=== PATIENT | male | born 1955 | race Caucasian/White ===

== ENCOUNTER 2020-02-29 19:45 | Emergency (ER) | payer OTHER, SELFPAY ==
[2020-02-29 21:44] VITALS: BP 184/93; PULSE 67; RESP 20; TEMP 37.2; O2SAT 98; BMI 36.1
[2020-02-29 22:20] LABS: MANUAL DIFF FLAG NO
[2020-02-29 22:24] LABS: Basophils Absolute Auto 0.1 X10*3/uL (0.0-0.2); Basophils Percent Auto 0.4 % (0-2); Eosinophils Absolute Auto 0.1 X10*3/uL (0.0-0.4); Hematocrit 46.2 % (42-52); Hemoglobin 15.6 g/dl (14.0-18.0); Imm Gran Abs Auto 0.03 X10*3/uL (0.00-0.03); Imm Gran Pct Auto 0.3 % (0.0-0.4); Lymphocytes Absolute Auto 3.5 X10*3/uL (1.2-4.9); Lymphocytes Percent Auto 29.1 % (20-40); Mean Corpuscular HGB Conc 33.8 g/dl (31.0-36.0); Mean Corpuscular Hemoglobin 30.4 pg (27.0-33.0); Mean Corpuscular Volume 90.1 fL (80-98); Monocytes Absolute Auto 0.9 X10*3/uL (0.1-1.2); Monocytes Percent Auto 7.5 % (2-11); Neutrophils Absolute Auto 7.3 X10*3/uL (2.0-8.3); Neutrophils Percent Auto 61.7 % (45-73); Platelet Count 232 X10*3/uL (160-400); Red Blood Count 5.13 X10*6/uL (4.60-5.80); Red Cell Distribution Width 12.4 % (11.0-16.0); White Blood Count 11.9 X10*3/uL (4.8-10.8)
[2020-02-29 22:54] LABS: Anion Gap 15 (12-20); Blood Urea Nitrogen 18 mg/dL (9-16); Calcium 9.8 mg/dL (8.4-10.2); Carbon Dioxide 28 mmol/L (22-29); Chloride 97 mmol/L (96-108); Creatinine Clr Calc Pharmacy 72.6; Estimated Glomerular Filt Rate 48; Glucose Random 359 mg/dL (60-115); Potassium 4.9 mmol/l (3.3-5.1); Sodium 135 mmol/L (135-145)
--- NOTE | 2020-02-29 23:28 | XR_ITS ---
EXAMINATION: XR CHEST CLINICAL INFORMATION: Weakness COMPARISON: CT 10/21/2018. Radiograph 11/23/2016 TECHNIQUE: Frontal view of the chest was obtained. FINDINGS: The lungs are well expanded. Calcifications are again noted diffusely, consistent with the appearance on previous CT and history of asbestos exposure. No consolidation. No edema or effusion. No pneumothorax. The cardiomediastinal silhouette is within normal limits. Mild degenerative changes of the spine. XR/XR chest 1V IMPRESSION: No acute pulmonary finding. Pleural calcifications again noted.
--- NOTE | 2020-02-29 23:34 | ED.GENADULT ---
HPI - General Adult General Chief complaint: Recheck/Abnormal Lab/Rx Stated complaint: ACHEY Time Seen by Provider: 02/29/20 23:12 History of Present Illness HPI narrative: Patient is a 64-year-old male with a long history of diabetes. Presents today with generalized malaise. Patient noted to have an elevated sugar. He took his normal insulin. Patient drank some apple juice,, subsequently came to the emergency department. There has been no other changes in medication. Patient complaining of generally feeling not well and may be having a flu like symptoms. He denies any coughing any upper respiratory symptoms denies any pain on urination. No earache. No sore throat. Patient from home. Did not feel just right. Denies any chest pain any diaphoresis. Denies any bloody stool. Related Data Home Medications Medication Instructions Recorded Confirmed insulin glargine [Lantus U-100 66 unit SUBCUT QPM 02/29/20 02/29/20 Insulin] Allergies Allergy/AdvReac Type Severity Reaction Status Date / Time codeine [CODEINE] Allergy Severe ANAPHYLAXIS Unverified 01/21/20 19:18 Review of Systems Review of Systems: Constitutional: No Weight loss, No Fever, No Chills, No Night Sweats, positive fatigue ENT/Mouth: No Hearing loss, No Ear Pain, No Nasal Congestion, No Sinus Pain, No Hoarseness, No sore throat, No Rhinorrhea, No Swallowing Difficulty Eyes: No Eye Pain, No Swelling, No Redness, No Foreign Body, No Discharge, No Vision Changes Cardiovascular: No Chest Pain, No SOB, No Dyspnea on Exertion, No Orthopnea, No Edema, No Palpitations Respiratory: No Cough, No Sputum, No Wheezing, No Smoke Exposure, No Dyspnea Gastrointestinal: No abdominal pain no nausea no vomiting no diarrhea Genitourinary: no irregular bleeding, No Dysuria, No Urinary Frequency, No Hematuria, No Urinary Incontinence, No Urgency, No Flank Pain, No Urinary Flow Changes, No Hesitancy Musculoskeletal: No joint pain, No Myalgias, No Joint Swelling Skin: No Skin Lesions, No rash Neuro: No Weakness, No Numbness, No Paresthesias, No Loss of Consciousness, No Dizziness, No Headache Psych: No Anxiety/Panic, No Depression, No SI/HI/AH/VH, No Social Issues, Heme/Lymph: No Bruising, No Bleeding,No Lymphadenopathy Endocrine: No Polyuria, No Polydipsia, No Temperature Intolerance [facility] Past Medical History Source: old records reviewed Medical History Depression Diabetes High cholesterol HTN (hypertension) TBI (traumatic brain injury) Social History Social History Advance Directives: No Advance Directives Information Provided: Yes Physical Exam Vital Signs: Vital Signs: Vital Signs Temp Pulse Resp BP Pulse Ox 03/01/20 02:00 69 18 156/85 H 97 03/01/20 00:42 97.9 F 67 16 141/89 H 03/01/20 00:35 96 03/01/20 00:04 86 15 106/65 98 03/01/20 00:00 80 16 132/81 02/29/20 21:44 98.9 F 67 20 184/93 H 98 Body Mass Index 36.1 Appearance: Alert. Oriented X3. No acute distress. Eyes: Pupils equal, round and reactive to light. ENT: Pharynx normal. Neck: Normal inspection. Neck supple. No lymph nodes noted. No crepitus CVS: Normal heart rate and rhythm. Pulses normal. Normal S1 and S2 Respiratory: No respiratory distress. Breath sounds normal. No Wheezing. No rales Abdomen: Soft and nontender. No rigidity. No distention. good BS x4 Skin: Skin warm and dry. Normal skin color. Normal skin turgor. Extremities: No lower extremity edema. Neurovascular intact to all extremities. No Lacerations. No Rash Neuro: Oriented X 3. No motor deficit. No sensory deficit. Moving all extermities. No slurred speech Medical Decision Making MDM Narrative Medical decision making narrative: Patient's urine showed no signs of infection. Chest x-ray showed no evidence of pneumonia. Well-appearing no acute distress. Electrolytes showed a creatinine 1.46 which is new. Will ask patient to drink more fluids. Closely follow up with primary physician. Will discharge home. Patient's sugar monitor in the emergency department down to the 200 range Lab Data Result diagrams: 02/29/20 22:14 02/29/20 22:14 Labs: Lab Results 02/29/20 02/29/20 02/29/20 Range/Units 22:14 22:14 22:14 WBC 11.9 H (4.8-10.8) X10*3/uL RBC 5.13 (4.60-5.80) X10*6/uL Hgb 15.6 (14.0-18.0) g/dl Hct 46.2 (42-52) % MCV 90.1 (80-98) fL MCH 30.4 (27.0-33.0) pg MCHC 33.8 (31.0-36.0) g/dl RDW 12.4 (11.0-16.0) % Plt Count 232 (160-400) X10*3/uL MPV 9.0 L (9.4-12.4) fL Immature Gran % (Auto) 0.3 (0.0-0.4) % Neut % (Auto) 61.7 (45-73) % Lymph % (Auto) 29.1 (20-40) % Terrell % (Auto) 7.5 (2-11) % Eos % (Auto) 1.0 (0-4) % Baso % (Auto) 0.4 (0-2) % Lymph # (Auto) 3.5 (1.2-4.9) X10*3/uL Terrell # (Auto) 0.9 (0.1-1.2) X10*3/uL Eos # (Auto) 0.1 (0.0-0.4) X10*3/uL Baso # (Auto) 0.1 (0.0-0.2) X10*3/uL Abs Immat Gran (auto) 0.03 (0.00-0.03) X10*3/uL Absolute Neuts (auto) 7.3 (2.0-8.3) X10*3/uL Absolute Nucleated RBC 0.000 (0.0-0.012) X10*3/uL Nucleated RBC % (auto) 0.0 (0.0-0.2) /100WBC Hold Purple Top SEE NOTE Hold Blue Top SEE NOTE Sodium (135-145) mmol/L Potassium (3.3-5.1) mmol/l Chloride (96-108) mmol/L Carbon Dioxide (22-29) mmol/L Anion Gap (12-20) BUN (9-16) mg/dL Creatinine (0.5-1.4) mg/dL Estim Creat Clear Calc Estimated GFR POC Glucose (60-115) mg/dL Random Glucose (60-115) mg/dL Calcium (8.4-10.2) mg/dL Urine Color Urine Appearance Urine pH (5.0-8.0) Ur Specific Macon (1.005-1.025) Urine Protein (NEG-TRACE) MG/DL Urine Glucose (UA) (NEG) MG/DL Urine Ketones (NEG) MG/DL Urine Blood (NEG) Urine Nitrite (NEG) Ur Leukocyte Esterase (NEG) Urine RBC (0) /HPF Urine WBC (0-4) /HPF Ur Squamous Epith Cells /LPF Urine Bacteria /LPF Hyaline Casts /LPF Urine Mucus /LPF 02/29/20 02/29/20 03/01/20 Range/Units 22:14 23:46 00:45 WBC (4.8-10.8) X10*3/uL RBC (4.60-5.80) X10*6/uL Hgb (14.0-18.0) g/dl Hct (42-52) % MCV (80-98) fL MCH (27.0-33.0) pg MCHC (31.0-36.0) g/dl RDW (11.0-16.0) % Plt Count (160-400) X10*3/uL MPV (9.4-12.4) fL Immature Gran % (Auto) (0.0-0.4) % Neut % (Auto) (45-73) % Lymph % (Auto) (20-40) % Terrell % (Auto) (2-11) % Eos % (Auto) (0-4) % Baso % (Auto) (0-2) % Lymph # (Auto) (1.2-4.9) X10*3/uL Terrell # (Auto) (0.1-1.2) X10*3/uL Eos # (Auto) (0.0-0.4) X10*3/uL Baso # (Auto) (0.0-0.2) X10*3/uL Abs Immat Gran (auto) (0.00-0.03) X10*3/uL Absolute Neuts (auto) (2.0-8.3) X10*3/uL Absolute Nucleated RBC (0.0-0.012) X10*3/uL Nucleated RBC % (auto) (0.0-0.2) /100WBC Hold Purple Top Hold Blue Top Sodium 135 (135-145) mmol/L Potassium 4.9 (3.3-5.1) mmol/l Chloride 97 (96-108) mmol/L Carbon Dioxide 28 (22-29) mmol/L Anion Gap 15 (12-20) BUN 18 H (9-16) mg/dL Creatinine 1.46 H (0.5-1.4) mg/dL Estim Creat Clear Calc 72.6 Estimated GFR 48 POC Glucose 305 H 270 H (60-115) mg/dL Random Glucose 359 H* (60-115) mg/dL Calcium 9.8 (8.4-10.2) mg/dL Urine Color Urine Appearance Urine pH (5.0-8.0) Ur Specific Macon (1.005-1.025) Urine Protein (NEG-TRACE) MG/DL Urine Glucose (UA) (NEG) MG/DL Urine Ketones (NEG) MG/DL Urine Blood (NEG) Urine Nitrite (NEG) Ur Leukocyte Esterase (NEG) Urine RBC (0) /HPF Urine WBC (0-4) /HPF Ur Squamous Epith Cells /LPF Urine Bacteria /LPF Hyaline Casts /LPF Urine Mucus /LPF 03/01/20 03/01/20 03/01/20 Range/Units 01:42 02:46 03:12 WBC (4.8-10.8) X10*3/uL RBC (4.60-5.80) X10*6/uL Hgb (14.0-18.0) g/dl Hct (42-52) % MCV (80-98) fL MCH (27.0-33.0) pg MCHC (31.0-36.0) g/dl RDW (11.0-16.0) % Plt Count (160-400) X10*3/uL MPV (9.4-12.4) fL Immature Gran % (Auto) (0.0-0.4) % Neut % (Auto) (45-73) % Lymph % (Auto) (20-40) % Terrell % (Auto) (2-11) % Eos % (Auto) (0-4) % Baso % (Auto) (0-2) % Lymph # (Auto) (1.2-4.9) X10*3/uL Terrell # (Auto) (0.1-1.2) X10*3/uL Eos # (Auto) (0.0-0.4) X10*3/uL Baso # (Auto) (0.0-0.2) X10*3/uL Abs Immat Gran (auto) (0.00-0.03) X10*3/uL Absolute Neuts (auto) (2.0-8.3) X10*3/uL Absolute Nucleated RBC (0.0-0.012) X10*3/uL Nucleated RBC % (auto) (0.0-0.2) /100WBC Hold Purple Top Hold Blue Top Sodium (135-145) mmol/L Potassium (3.3-5.1) mmol/l Chloride (96-108) mmol/L Carbon Dioxide (22-29) mmol/L Anion Gap (12-20) BUN (9-16) mg/dL Creatinine (0.5-1.4) mg/dL Estim Creat Clear Calc Estimated GFR POC Glucose 246 H 241 H (60-115) mg/dL Random Glucose (60-115) mg/dL Calcium (8.4-10.2) mg/dL Urine Color DARK YELLOW Urine Appearance CLEAR Urine pH 6.5 (5.0-8.0) Ur Specific Macon 1.025 (1.005-1.025) Urine Protein 1+ H (NEG-TRACE) MG/DL Urine Glucose (UA) 500 H (NEG) MG/DL Urine Ketones NEG (NEG) MG/DL Urine Blood NEG (NEG) Urine Nitrite NEG (NEG) Ur Leukocyte Esterase NEG (NEG) Urine RBC 0 (0) /HPF Urine WBC 0-2 (0-4) /HPF Ur Squamous Epith Cells 2+ /LPF Urine Bacteria NONE /LPF Hyaline Casts 1-4 /LPF Urine Mucus 1+ /LPF Discharge Plan Discharge Clinical Impression: Weakness, Acute hyperglycemia Patient Disposition: Home, Self-Care Instructions: Weakness (ED), Diabetic Hyperglycemia (ED) Prescriptions: No Action Lantus U-100 Insulin 100 unit/mL Solution 66 unit SUBCUT QPM RF: 0 Referrals: Physician,Unknown [Primary Care Provider] - 2 days (Follow-up with your physician in 2 days. Please keep yourself hydrated.)
[2020-02-29 23:49] LABS: Glucose, Whole Blood 305 mg/dL (60-115)
[2020-03-01] VITALS: BP 132/81; PULSE 80; RESP 16
[2020-03-01 00:04] VITALS: BP 106/65; PULSE 86; RESP 15; O2SAT 98
--- NOTE | 2020-03-01 00:04 | PC.NURSE ---
PT RESTING IN STRETCHER, POC -305. PT DENIES ANY COMPLAINTS AT THIS TIME.
[2020-03-01] MEDS: 0.9 % Sodium Chloride 1,000 ML 999 ML IVCONT (00:05)
--- NOTE | 2020-03-01 00:11 | PC.NURSE ---
REPORT GIVEN TO ORLANDO MOSELEY ON IMC. PT TO FLOOR AT THIS TIME.
[2020-03-01 00:35] VITALS: O2SAT 96
[2020-03-01 00:42] VITALS: BP 141/89; PULSE 67; RESP 16; TEMP 36.6
[2020-03-01 00:50] LABS: Glucose, Whole Blood 270 mg/dL (60-115)
[2020-03-01 01:46] LABS: Glucose, Whole Blood 246 mg/dL (60-115)
[2020-03-01 02:00] VITALS: BP 156/85; PULSE 69; RESP 18; O2SAT 97
[2020-03-01 03:04] LABS: Glucose, Whole Blood 241 mg/dL (60-115)
[2020-03-01 03:18] LABS: Appearance Urine CLEAR; Color Urine DARK YELLOW; Glucose Urine UA 500 MG/DL (NEG); Leukocyte Esterase Urine NEG (NEG); Nitrite Urine NEG (NEG); PH 6.5 (5.0-8.0); Specific Gravity - Urine 1.025 (1.005-1.025); Urine Blood NEG (NEG); Urine Ketones NEG (NEG); Urine Protein 1+ MG/DL (NEG-TRACE)
--- NOTE | 2020-03-01 03:18 | PC.NURSE ---
COVID SWAB OBTAINED TO LAB. PT UP TO RESTROOM FOR URINE SAMPLE TO LAB FOR EVAL. PT REMAINS ALERT, RESPIRATIONS EASY, N/L. SKIN W/D. PT AWAITING FOR DISPO HOME. BS OBTAINED HOURLY PER ORDERS.
[2020-03-01 03:24] LABS: Mucus Urine 1+ /LPF; RBC Urine 0 /HPF (0); Squamous Epithelial Cell Urine 2+ /LPF; WBC Urine 0-2 /HPF (0-4)
[2020-03-01 04:12] VITALS: BP 161/80; PULSE 16; O2SAT 98
== END 2020-03-01 04:29 | disposition home or self-care (01) ==
PROVIDERS: Emergency Provider Emergency Medicine Emergency Medical Services
DX: E11.65 Type 2 diabetes mellitus with hyperglycemia (principal); R53.1 Weakness; Z20.828 Contact with and (suspected) exposure to other viral communicable diseases; Z79.4 Long term (current) use of insulin; Z79.899 Other long term (current) drug therapy
CPT/HCPCS: 36415; 71045; 80048; 81001; 82947; 85025; 87635; 96360; 99284

== ENCOUNTER 2020-03-21 10:10 | Emergency (ER) | payer OTHER, SELFPAY ==
[2020-03-21 10:26] VITALS: BP 131/89; PULSE 80; RESP 17; O2SAT 97; BMI 35.6
--- NOTE | 2020-03-21 10:28 | ED.GENADULT ---
HPI - General Adult General Chief complaint: General Medical Stated complaint: HIGH BLOOD SUGAR PER FACILITY Time Seen by Provider: 03/21/20 10:28 Source: patient Mode of arrival: ambulatory Limitations: no limitations History of Present Illness MD complaint: elevated blood sugar, no meds x 3 weeks, feels shaky at times Onset (ago): week(s) (3) Radiation: non-radiation Severity: mild Relieving factors: none Exacerbating factors: none Associated symptoms: denies other symptoms Treatments prior to arrival: none Related Data Home Medications Medication Instructions Recorded Confirmed insulin glargine [Lantus U-100 66 unit SUBCUT QPM 02/29/20 02/29/20 Insulin] Allergies Allergy/AdvReac Type Severity Reaction Status Date / Time codeine [CODEINE] Allergy Severe ANAPHYLAXIS Unverified 01/21/20 19:18 Review of Systems Review of Systems: Constitutional : No Weight loss, No Fever, No Chills, No Fatigue, No Malaise, feels shaky at times ENT/Mouth : No sore throat, No Rhinorrhea Eyes: No Eye Pain, No Swelling, No Redness Cardiovascular : No Chest Pain, No SOB, No Dyspnea on Exertion, No Orthopnea, No Edema, No Palpitations Respiratory : No Cough, No Sputum, No Wheezing Gastrointestinal : No Nausea, No Vomiting, No Diarrhea, No Constipation, No abdominal Pain, No Hematochezia, No Melena Genitourinary : No Dysuria, No Urinary Frequency, No Hematuria, Musculoskeletal : No joint pain, No Myalgias, No Joint Swelling Skin : No Skin Lesions, No rash Neuro : No Weakness, No Numbness, No Dizziness, No Headache Psych : No Anxiety/Panic, No Depression All other systems reviewed and are negative [facility] Past Medical History Attestation statement: The following information was validated with the patient. Medical History Depression Diabetes High cholesterol HTN (hypertension) TBI (traumatic brain injury) Social History Social History Alcohol intake: current Alcohol intake frequency: a few times a month Alcohol type: beer Smoking Status: Never smoker Smoked in Last 30 Days: No Use of substances other than those prescribed or required for medical reasons: No Advance Directives: No Advance Directives Information Provided: Yes Physical Exam Vital Signs: Vital Signs: Last Vital Signs Temp 98.7 F 03/21/20 12:00 Pulse 88 03/21/20 13:49 Resp 15 03/21/20 13:49 BP 148/88 H 03/21/20 13:49 Pulse Ox 98 03/21/20 13:49 Body Mass Index 35.6 Appearance: Alert. Oriented X3. No acute distress. Eyes: Pupils equal, round and reactive to light. ENT: Pharynx normal. Neck: Normal inspection. Neck supple. CVS: Normal heart rate and rhythm. Pulses normal. Respiratory: No respiratory distress. Breath sounds normal. Abdomen: Soft and nontender. Skin: Skin warm and dry. Normal skin color. Normal skin turgor. Extremities: No lower extremity edema. No calf ttp Neuro: Oriented X 3. No motor deficit. No sensory deficit. Course Course Course Narrative: states he has medications for home, no signs of DKA, renal function at baseline, he states his meds will be ready in 1 week - CM to be involved plan to keep overnight for CM to situate medications signed out to oncoming provider pending case management Medical Decision Making [facility] Narrative Medical decision making narrative: 64 yo male with hx of DM, TBI here with off of medications x 3 weeks - BS in 400s, no real complaints feels shaky at times, [facility], obtain basic labs Lab Data Result diagrams: 03/21/20 11:10 03/21/20 11:10 Labs: Lab Results 03/21/20 03/21/20 03/21/20 Range/Units 11:10 11:10 11:13 WBC 9.2 (4.8-10.8) X10*3/uL RBC 5.41 (4.60-5.80) X10*6/uL Hgb 16.4 (14.0-18.0) g/dl Hct 47.8 (42-52) % MCV 88.4 (80-98) fL MCH 30.3 (27.0-33.0) pg MCHC 34.3 (31.0-36.0) g/dl RDW 12.3 (11.0-16.0) % Plt Count 253 (160-400) X10*3/uL MPV 9.6 (9.4-12.4) fL Immature Gran % (Auto) 0.3 (0.0-0.4) % Neut % (Auto) 69.3 (45-73) % Lymph % (Auto) 23.3 (20-40) % Cowley % (Auto) 5.2 (2-11) % Eos % (Auto) 1.4 (0-4) % Baso % (Auto) 0.5 (0-2) % Lymph # (Auto) 2.2 (1.2-4.9) X10*3/uL Cowley # (Auto) 0.5 (0.1-1.2) X10*3/uL Eos # (Auto) 0.1 (0.0-0.4) X10*3/uL Baso # (Auto) 0.1 (0.0-0.2) X10*3/uL Abs Immat Gran (auto) 0.03 (0.00-0.03) X10*3/uL Absolute Neuts (auto) 6.4 (2.0-8.3) X10*3/uL Absolute Nucleated RBC 0.000 (0.0-0.012) X10*3/uL Nucleated RBC % (auto) 0.0 (0.0-0.2) /100WBC Sodium 131 L (135-145) mmol/L Potassium 5.0 (3.3-5.1) mmol/l Chloride 94 L (96-108) mmol/L Carbon Dioxide 24 (22-29) mmol/L Anion Gap 18 (12-20) BUN 20 H (9-16) mg/dL Creatinine 1.52 H (0.5-1.4) mg/dL Estim Creat Clear Calc 69.2 Estimated GFR 46 POC Glucose 453 H* (60-115) mg/dL Random Glucose 442 H* (60-115) mg/dL Calcium 9.9 (8.4-10.2) mg/dL Magnesium 2.1 (1.6-2.6) mg/dL Total Bilirubin 0.6 (0.0-1.0) mg/dL Direct Bilirubin 0.2 (0.0-0.5) mg/dL AST 26 (5-37) U/L ALT 11 (0-40) U/L Alkaline Phosphatase 90 (39-117) U/L Total Protein 8.9 H (6.5-8.0) g/dL Albumin 4.7 (3.5-5.0) g/dL Acetone, Qual Negative (Negative) 03/21/20 03/21/20 Range/Units 12:10 13:46 WBC (4.8-10.8) X10*3/uL RBC (4.60-5.80) X10*6/uL Hgb (14.0-18.0) g/dl Hct (42-52) % MCV (80-98) fL MCH (27.0-33.0) pg MCHC (31.0-36.0) g/dl RDW (11.0-16.0) % Plt Count (160-400) X10*3/uL MPV (9.4-12.4) fL Immature Gran % (Auto) (0.0-0.4) % Neut % (Auto) (45-73) % Lymph % (Auto) (20-40) % Cowley % (Auto) (2-11) % Eos % (Auto) (0-4) % Baso % (Auto) (0-2) % Lymph # (Auto) (1.2-4.9) X10*3/uL Cowley # (Auto) (0.1-1.2) X10*3/uL Eos # (Auto) (0.0-0.4) X10*3/uL Baso # (Auto) (0.0-0.2) X10*3/uL Abs Immat Gran (auto) (0.00-0.03) X10*3/uL Absolute Neuts (auto) (2.0-8.3) X10*3/uL Absolute Nucleated RBC (0.0-0.012) X10*3/uL Nucleated RBC % (auto) (0.0-0.2) /100WBC Sodium (135-145) mmol/L Potassium (3.3-5.1) mmol/l Chloride (96-108) mmol/L Carbon Dioxide (22-29) mmol/L Anion Gap (12-20) BUN (9-16) mg/dL Creatinine (0.5-1.4) mg/dL Estim Creat Clear Calc Estimated GFR POC Glucose 418 H* 384 H* (60-115) mg/dL Random Glucose (60-115) mg/dL Calcium (8.4-10.2) mg/dL Magnesium (1.6-2.6) mg/dL Total Bilirubin (0.0-1.0) mg/dL Direct Bilirubin (0.0-0.5) mg/dL AST (5-37) U/L ALT (0-40) U/L Alkaline Phosphatase (39-117) U/L Total Protein (6.5-8.0) g/dL Albumin (3.5-5.0) g/dL Acetone, Qual (Negative) Discharge Plan Discharge Clinical Impression: Acute hyperglycemia Prescriptions: No Action Lantus U-100 Insulin 100 unit/mL Solution 66 unit SUBCUT QPM RF: 0
[2020-03-21 11:14] LABS: MANUAL DIFF FLAG NO
[2020-03-21 11:19] LABS: Glucose, Whole Blood 453 mg/dL (60-115)
[2020-03-21 11:20] LABS: Basophils Absolute Auto 0.1 X10*3/uL (0.0-0.2); Basophils Percent Auto 0.5 % (0-2); Eosinophils Absolute Auto 0.1 X10*3/uL (0.0-0.4); Eosinophils Percent Auto 1.4 % (0-4); Hematocrit 47.8 % (42-52); Hemoglobin 16.4 g/dl (14.0-18.0); Imm Gran Abs Auto 0.03 X10*3/uL (0.00-0.03); Imm Gran Pct Auto 0.3 % (0.0-0.4); Lymphocytes Absolute Auto 2.2 X10*3/uL (1.2-4.9); Lymphocytes Percent Auto 23.3 % (20-40); Mean Corpuscular HGB Conc 34.3 g/dl (31.0-36.0); Mean Corpuscular Hemoglobin 30.3 pg (27.0-33.0); Mean Corpuscular Volume 88.4 fL (80-98); Mean Platelet Volume 9.6 fL (9.4-12.4); Monocytes Absolute Auto 0.5 X10*3/uL (0.1-1.2); Monocytes Percent Auto 5.2 % (2-11); Neutrophils Absolute Auto 6.4 X10*3/uL (2.0-8.3); Neutrophils Percent Auto 69.3 % (45-73); Platelet Count 253 X10*3/uL (160-400); Red Blood Count 5.41 X10*6/uL (4.60-5.80); Red Cell Distribution Width 12.3 % (11.0-16.0); White Blood Count 9.2 X10*3/uL (4.8-10.8)
--- NOTE | 2020-03-21 11:20 | PC.NURSE ---
pt reports not taking insulin since Saturday because I felt fine . denies complaints, given water as requested. pending labs
[2020-03-21] MEDS: Insulin Regular, Human 100 UNIT/ML 3 ML VIAL 10 UNIT SUBCUT (11:36)
[2020-03-21 11:57] LABS: Alanine Aminotransferase 11 U/L (0-40); Albumin Level 4.7 g/dL (3.5-5.0); Alkaline Phosphatase 90 U/L (39-117); Anion Gap 18 (12-20); Aspartate Amino Transferase 26 U/L (5-37); Bilirubin Direct 0.2 mg/dL (0.0-0.5); Bilirubin Total 0.6 mg/dL (0.0-1.0); Blood Urea Nitrogen 20 mg/dL (9-16); Calcium 9.9 mg/dL (8.4-10.2); Carbon Dioxide 24 mmol/L (22-29); Chloride 94 mmol/L (96-108); Creatinine Clr Calc Pharmacy 69.2; Estimated Glomerular Filt Rate 46; Glucose Random 442 mg/dL (60-115); Magnesium 2.1 mg/dL (1.6-2.6); Sodium 131 mmol/L (135-145); Total Protein 8.9 g/dL (6.5-8.0)
[2020-03-21 12:00] VITALS: BP 130/74; PULSE 80; RESP 16; TEMP 37.1; O2SAT 98
[2020-03-21 12:14] LABS: Glucose, Whole Blood 418 mg/dL (60-115)
[2020-03-21 12:14] LABS: Acetone, serum QL Negative (Negative)
[2020-03-21 13:49] VITALS: BP 148/88; PULSE 88; RESP 15; O2SAT 98
[2020-03-21 13:51] LABS: Glucose, Whole Blood 384 mg/dL (60-115)
--- NOTE | 2020-03-21 15:46 | MHC.CM.ED ---
pt lives in dormitory at [facility]. residents are suppose to be independent who live there, however it appears he may need help c med management. i did call the outpatient clinic at the [facility], they saw him prior to sending him to the [facility] e.d[facility] and confirmed that patient [facility] not [facility] [place] [facility] period [facility]. there is a nurse , cory ph: [phone], that works at the [facility] OP clinic and knows yue very well. she is not working today but will be on tomorrow. she was trying to help yue get the meds he needs over the weekend, evidently he has some but not all meds and no one knows exactly which ones. lastly, pt only has [facility] insurance and his PCP is at the [facility]. [facility] ph: [phone]. dc plan is to contact cory tomorrow c hopes of getting an accurate med inventory and a med needs list. i also contacted [facility] and spoke to the pharmacy, they confirmed that he recieves a shipment of his meds every 3 mos. - last one was in december. currently , as of today, he has a shipment in the mail that should be arriving in the next 1-2 days per [facility]. this story varies from what the patient told me. perhaps cory can shed some light on how to get the meds pt needs until his shipment comes in. cm to cont. to follow.
[2020-03-21] MEDS: 0.9 % Sodium Chloride 500 ML IV (16:07)
[2020-03-21 18:08] VITALS: BP 154/86; PULSE 82; RESP 16; O2SAT 98
[2020-03-21 19:59] VITALS: BP 145/85; PULSE 85; RESP 16; TEMP 36.4
[2020-03-21 21:50] VITALS: BP 160/92; PULSE 84; RESP 16; TEMP 36.4; O2SAT 95
--- NOTE | 2020-03-21 22:26 | PC.NURSE ---
[facility] calling for update on pt condition, requesting to be called in the morning prior to discharge [phone], . Primary RN aware.
[2020-03-22] VITALS: RESP 16
[2020-03-22 05:40] VITALS: BP 129/77; PULSE 94; RESP 18; TEMP 36.7; O2SAT 97
[2020-03-22 05:48] LABS: Glucose, Whole Blood 348 mg/dL (60-115)
--- NOTE | 2020-03-22 07:43 | PC.NURSE ---
Pt awake, alert. Denies pain. ambulatory to bathroom to void. Set up for breakfast. Awaiting case management to reconcile accurate med list from [facility] the [facility] from prior notes
[2020-03-22 08:00] VITALS: BP 158/95; PULSE 104; RESP 20; O2SAT 97
[2020-03-22 08:31] VITALS: BP 162/83; PULSE 99; RESP 16; TEMP 36.8; O2SAT 95
[2020-03-22 09:27] LABS: Glucose, Whole Blood 436 mg/dL (60-115)
[2020-03-22 10:00] VITALS: BP 141/97; PULSE 96; RESP 18; O2SAT 95
--- NOTE | 2020-03-22 10:07 | MHC.CM.ED ---
Patient remains in ER. Left a message for ORLANDO William at the [facility] dorm to call T/W back. Continue to monitor for d/c needs.
[2020-03-22] MEDS: 0.9 % Sodium Chloride 1,000 ML 999 ML IVCONT (10:15)
[2020-03-22] MEDS: Insulin Regular, Human 100 UNIT/ML 3 ML VIAL 10 UNIT IVPUSH (10:15)
--- NOTE | 2020-03-22 10:17 | PC.NURSE ---
Pt thirsty, POC 436. French HAMILTON aware. 1 liter ns and insulin ordered/given. [facility]wait[facility] out to CM for further details on med list and ?dispo for pt
--- NOTE | 2020-03-22 11:05 | MHC.CM.ED ---
Received telephone call from Tamela at [facility]. Patient out of 4 medications on Saturday. She ordered them for him from the [place] pharmacy. She is concerned because Ministerio doesn't seem to know how to take his medications. [facility] was offered for medication management. Tamela will call T/W back. Continue to monitor for d/c needs.
[2020-03-22 12:11] LABS: Glucose, Whole Blood 303 mg/dL (60-115)
[2020-03-22 12:12] LABS: Glucose, Whole Blood 334 mg/dL (60-115)
--- NOTE | 2020-03-22 12:58 | MHC.CM.ED ---
Spoke with Nataliia at [facility]. Patient can return home. Patient does not have anyone to transport him. [facility] transport booked. Patient, James HAMILTON and Katy PERRY aware. Continue to monitor for d/c needs.
--- NOTE | 2020-03-22 13:11 | PC.NURSE ---
Pt to be transported back to [facility] via facility transport
== END 2020-03-22 14:00 | disposition home or self-care (01) ==
PROVIDERS: Emergency Provider Emergency Medicine
DX: E11.65 Type 2 diabetes mellitus with hyperglycemia (principal); I10 Essential (primary) hypertension; Z79.899 Other long term (current) drug therapy
CPT/HCPCS: 36415; 80048; 80076; 82009; 82947; 83735; 85025; 96361; 96374; 99285

== ENCOUNTER 2020-04-20 07:44 | Outpatient (REF) | payer OTHER, SELFPAY ==
[2020-04-20 09:34] LABS: MANUAL DIFF FLAG NO
[2020-04-20 10:10] LABS: Alanine Aminotransferase 29 U/L (0-40); Albumin Level 4.2 g/dL (3.5-5.0); Alkaline Phosphatase 55 U/L (39-117); Anion Gap 15 (12-20); Aspartate Amino Transferase 18 U/L (5-37); Bilirubin Total 0.4 mg/dL (0.0-1.0); Blood Urea Nitrogen 24 mg/dL (9-16); Calcium 8.8 mg/dL (8.4-10.2); Carbon Dioxide 27 mmol/L (22-29); Chloride 101 mmol/L (96-108); Cholesterol 182 mg/dL; Estimated Glomerular Filt Rate 58; Glucose Fasting 156 mg/dL (60-99); HDL Cholesterol 33 mg/dL; LDL Cholesterol Calculated 73 mg/dl; Potassium 4.6 mmol/l (3.3-5.1); Sodium 138 mmol/L (135-145); Total Protein 7.5 g/dL (6.5-8.0); Triglycerides 381 mg/dL
[2020-04-20 10:24] LABS: Glucose Urine UA NEG (NEG); Leukocyte Esterase Urine NEG (NEG); Nitrite Urine NEG (NEG); Specific Gravity - Urine 1.025 (1.005-1.025); Urine Blood NEG (NEG); Urine Ketones 5 MG/DL (NEG); Urine Protein NEG (NEG-TRACE)
[2020-04-20 10:28] LABS: Appearance Urine CLEAR; Color Urine YELLOW
[2020-04-20 10:30] LABS: Prostate Specific Antigen Scr 0.27 ng/mL (<0.05-4.0)
[2020-04-20 10:46] LABS: Basophils Percent Auto 0.5 % (0-2); Eosinophils Absolute Auto 0.2 X10*3/uL (0.0-0.4); Eosinophils Percent Auto 1.9 % (0-4); Hematocrit 42.2 % (42-52); Hemoglobin 13.9 g/dl (14.0-18.0); Imm Gran Abs Auto 0.04 X10*3/uL (0.00-0.03); Imm Gran Pct Auto 0.5 % (0.0-0.4); Lymphocytes Absolute Auto 3.1 X10*3/uL (1.2-4.9); Lymphocytes Percent Auto 38.8 % (20-40); Mean Corpuscular HGB Conc 32.9 g/dl (31.0-36.0); Mean Corpuscular Volume 91.1 fL (80-98); Mean Platelet Volume 9.4 fL (9.4-12.4); Monocytes Absolute Auto 0.7 X10*3/uL (0.1-1.2); Neutrophils Absolute Auto 4.1 X10*3/uL (2.0-8.3); Neutrophils Percent Auto 50.3 % (45-73); Platelet Count 248 X10*3/uL (160-400); Red Blood Count 4.63 X10*6/uL (4.60-5.80); White Blood Count 8.1 X10*3/uL (4.8-10.8)
[2020-04-20 10:54] LABS: Creatinine Urine 173.49 mg/dL; Microalbum/Creatinine Ratio Ur 13.8 ug/mg cr
[2020-04-20 11:40] LABS: Estimated Average Glucose 309 mg/dL; Hemoglobin A1c % 12.4 %
== END 2020-04-20 07:45 | disposition home or self-care (01) ==
LOC: HO.HSHHMC 07:44
PROVIDERS: Visit Provider Internal Medicine Endocrinology, Diabetes & Metabolism
DX: E11.9 Type 2 diabetes mellitus without complications (principal); E78.00 Pure hypercholesterolemia, unspecified; G47.33 Obstructive sleep apnea (adult) (pediatric)
CPT/HCPCS: 36415; 80053; 80061; 81003; 82043; 83036; 84153; 85025

== ENCOUNTER → 2020-09-05 10:52 | Outpatient (BNVA) | payer OTHER, SELFPAY | PROVIDERS: PCP Family Medicine; Visit Provider Internal Medicine | DX: E66.9 Obesity, unspecified (principal); G47.33 Obstructive sleep apnea (adult) (pediatric); Z99.89 Dependence on other enabling machines and devices | CPT/HCPCS: 99212 ==

== ENCOUNTER 2021-01-17 05:19 | Outpatient (REF) | payer OTHER, SELFPAY | END 2021-01-17 05:20 | disposition home or self-care (01) | LOC: HO.HSHHMC 05:19 | PROVIDERS: Visit Provider Internal Medicine Endocrinology, Diabetes & Metabolism | DX: Z13.89 Encounter for screening for other disorder (principal) ==

== ENCOUNTER 2021-01-19 07:11 | Outpatient (REF) | payer OTHER, SELFPAY ==
[2021-01-19 08:29] LABS: Anion Gap 12 (12-20); Blood Urea Nitrogen 18 mg/dL (9-16); Calcium 9.6 mg/dL (8.4-10.2); Carbon Dioxide 30 mmol/L (22-29); Chloride 104 mmol/L (96-108); Estimated Average Glucose 128 mg/dL; Estimated Glomerular Filt Rate > 60; Glucose Fasting 140 mg/dL (60-99); Hemoglobin A1c % 6.1 %; Potassium 4.7 mmol/L (3.3-5.1); Sodium 141 mmol/L (135-145)
[2021-01-19 09:04] LABS: Creatinine Urine 60.06 mg/dL; Microalbumin Urine < 5.0 mg/L
== END 2021-01-19 07:12 | disposition home or self-care (01) ==
LOC: HO.HSHHMC 07:11
PROVIDERS: Visit Provider Internal Medicine Endocrinology, Diabetes & Metabolism
DX: E11.9 Type 2 diabetes mellitus without complications (principal)
CPT/HCPCS: 36415; 80048; 82043; 83036

== ENCOUNTER 2021-04-25 08:48 | Emergency (ER) | payer OTHER, SELFPAY ==
--- NOTE | ~2021-04-25 | CT_ITS ---
EXAMINATION: CT HEAD WITHOUT CONTRAST CLINICAL INFORMATION: Slurred speech COMPARISON: CT brain 11/20/2016 TECHNIQUE: Contiguous axial imaging was performed from the skull base to vertex without intravenous administration of contrast. This CT examination was performed using dose optimization techniques as appropriate, variously including the following: *Automated exposure control *Adjustment of mA and/or kV according to patient size (this includes techniques or standardized protocols for targeted exams where dose is matched to indication/reason for exam; i.e. extremities or head) *Use of iterative reconstruction technique DLP: 818 mGy-cm FINDINGS: There is a right frontotemporal lobe encephalomalacia. Minimal left frontal lobe encephalomalacia. There is no acute infarct in evolution. There is no acute intra-axial or extra-axial bleed. There is extra-axial midline falx calcification. There is ex vacuole dilatation of frontal horn lateral ventricle. Both lateral ventricles are enlarged. Bone windows reveal right frontal craniotomy change. No acute fracture or scalp soft tissue swelling seen. Bilateral paranasal sinuses and mastoid air cells are well-aerated. CT/CT head/brain wo con IMPRESSION: No acute intracranial process seen. Right frontal temporal lobe encephalomalacia with overlying right frontal craniotomy change. Dilated lateral ventricles and right frontal lobe extra-axial phenomena. No major change compared to previous study 11/20/2016.
[2021-04-25 09:06] VITALS: BP 116/77; BP 125/71; PULSE 65; PULSE 69; RESP 24; TEMP 36.5; O2SAT 94; O2SAT 95; BMI 34.1
[2021-04-25 11:25] VITALS: BP 128/82; PULSE 70; RESP 15; TEMP 36.5; O2SAT 96
--- NOTE | 2021-04-25 11:33 | ED_ITS ---
HPI - Neuro Symptoms/Deficit General Chief Complaint: Neuro Symptoms/Deficit Stated Complaint: EVAL FOR SLURRED SPEECH PER SNF Time Seen by Provider: 04/25/21 10:07 Source: patient Mode of arrival: ambulatory Limitations: no limitations History of Present Illness HPI Narrative: 65 male past medical history of TBI, high blood pressure, anxiety, parkisons, seizure, and diabetes presents to ED for evaluation for poss ible slurred speech. Patient himself denies having any slurred speech, loss of vision, paralysis of extremities, facial droop, weakness, dizziness, headache, nausea, or vomiting. Also as per EMS patient's speech is clear & negative for any neuro deficits. As per EMS report they were called for patient potentially having slurred speech this morning. Patient was last seen well at 19:00 yesterday. As per patient he slept from 19:00 to 23:00 and since 23:00 he has been up and not been able to return to sleep. Patient states when he takes out his dentures his speech sounds funny but when he putes dentures back in mouth his speech is normal and which is his baseline. Patient states this morning he did not have his top dentures in which made his speech sound little bit off. Once again patient denies having any slurred speech & he just did not have his dentures in his mouth. Patient patient states no physical complaints. Related Data Home Medications Medication Instructions Recorded Confirmed insulin glargine 100 unit/mL 66 unit SUBCUT QPM 02/29/20 02/29/20 subcutaneous solution (Lantus U-100 Insulin) atorvastatin 80 mg tablet 80 mg PO BEDTIME 09/05/20 carbidopa 25 mg-levodopa 100 mg 1 tab PO TID 09/05/20 tablet divalproex 500 mg tablet,delayed 500 mg PO TID 09/05/20 release galantamine 12 mg tablet 24 mg PO ONCE tab 09/05/20 insulin aspart U-100 100 unit/mL 12 unit SUBCUT TID 09/05/20 (3 mL) subcutaneous pen (Novolog Flexpen U-100 Insulin aspart) metformin 1,000 mg tablet 1,000 mg PO BID 09/05/20 metoprolol tartrate 50 mg tablet 150 mg PO DAILY tab 09/05/20 primidone 50 mg tablet 100 mg PO BID tab 09/05/20 venlafaxine 150 mg tablet,extended 150 mg PO BEDTIME 09/05/20 release 24 hr Allergies Allergy/AdvReac Type Severity Reaction Status Date / Time codeine [CODEINE] Allergy Severe ANAPHYLAXIS Verified 09/05/20 11:18 Review of Systems Review of Systems: Yes all other systems are reviewed and are negative Constitutional: Constitutional: Reports as per HPI and Reports no additional constitutional complaints Eyes: Eyes: Reports as per HPI and Reports no additional eye complaints ENT: Reports system reviewed and no additional complaints, except as documented and Reports as per HPI Cardiovascular: Cardiovascular: Reports as per HPI and Reports no additional cardiovascular complaints Respiratory: Respiratory: Reports as per HPI and Reports no additional respiratory complaints Gastrointestinal: Gastrointestinal: Reports as per HPI and Reports no additional gastrointestinal complaints Genitourinary: Genitourinary: Reports no additional male genitourinary complaints and Reports as per HPI Musculoskeletal: Musculoskeletal: Reports no additional musculoskeletal complaints and Reports as per HPI Integumentary/Breasts: Skin/Breast: Reports system reviewed and no additional complaints, except as docu and Reports as per HPI Neurologic: Reports system reviewed and no additional complaints, except as documented and Reports as per HPI Psychiatric: Psychiatric: Reports no additional psychiatric complaints and Reports as per HPI [facility] Past Medical History Medical History (Updated 04/25/21 @ 12:00 by JOY Ruano) Depression Diabetes High cholesterol HTN (hypertension) Obesity (BMI 30-39.9) WINDY on CPAP TBI (traumatic brain injury) Social History Social History Alcohol intake: never Patient Tobacco Use Status: Never used Tobacco Use of substances other than those prescribed or required for medical reasons: No Advance Directives: Yes Advance Directives Information Provided: Yes Advance Directives on File: No Physical Exam Vital Signs: Vital Signs: Last Vital Signs Temp 97.7 F 04/25/21 11:25 Pulse 70 04/25/21 12:00 Resp 18 04/25/21 12:00 BP 137/71 04/25/21 12:00 Pulse Ox 100 04/25/21 12:00 BMI result Body Mass Index 34.1 Const: General: cooperative, healthy appearing, comfortable, no acute distress, well developed, alert, awake and Physically active Orientation/consciousness: patient oriented x3 HENMT: Head: Yes normal to inspection, Yes No palpable skull fracture present, Yes normocephalic, Yes atraumatic and No abrasion Eyes: General: appearance normal, both eyes and all related structures Neck: Neck: Yes normal visual inspection, Yes full ROM, Yes no lymphadenopathy, Yes no meningeal signs, Yes trachea midline, Yes supple, No anterior neck swelling and No tender Chest: Chest palpation & inspection: normal inspection of the chest and normal palpation of entire chest wall Resp: Effort & Inspection: normal respiratory effort and able to speak in complete sentences Auscultation: clear to auscultation bilaterally Cardio: Jugular venous distension: no JVD Heart sounds: S1 normal heart sound present and S2 normal heart sound present GI: Inspection: Yes normal to inspection and No abdominal wall ecchymosis Palpation (GI): Soft to palpation, not firm, nontender, no guarding and not rigid : General: No CVA tenderness and Yes no CVA tenderness Back/Spine/Pelvis: Back: no CVA tenderness, No CVA tenderness and No back tenderness Skin: General skin exam: no rashes or lesions noted and elasticity normal Neuro: Other: Negative facial droop. Negative slurred speech. All extremities equal strength 5+. [id number] and rapid hand movement intact. Pronator drift. Rapid hand movement intact. Negative Romberg General: patient oriented x3, gait normal, no meningeal signs and CN's II-XI intact bilaterally Cranial nerves: Yes CN's II-XII intact bilaterally Extrem: General: Yes normal to inspection and Yes full ROM Psych: Appearance: grossly normal, well kempt and not disheveled Course Course Course Narrative: Patient NIH score 0. Presently negative for any neuro deficits. Patient's speech is clear. Patient is alert oriented 0x3. Negative for dysarthria or aphasia. Patient presently asymptomatic. Will order head CT scan as a formality but no code stroke. not suspecting patient having history Reevaluation(s) Reevaluation #1: Spoke with grinding and spraying supervisor nurse C[place] at facility who states he was informed while staff member was talking to patient, patient started dozing off and sleeping due to patient being up all night and all morning. He states staff member thought patient's speech was slurry because patient was sleeping. [employer] Assistant nurse said staff member did not say patient's speech was dysarthria or aphasic. Supervising nurse Son states patient did not have his top dentures which sometimes can cause his speech to sign off if he does not have t hem. He states patient has not been sleeping well because patient has not taken his Primidone for the past two weeks. He states patient's fingerstick at that time was 175 and when he saw patient there was no dysarthria or aphasia. once patient put his dentures in speech was clear. He Does not believe patient was having a stroke but patient was sent to the ED for evaluation. As per history physical exam, patient did not have a TIA or stroke. Patient states he did not have his dentures in the morning which causes speech to sign off but he denies ever having any slurred speech. No MRI, labs, or EkG indicated. Case discussed with Dr. Hicthcock who agrees with plan. Head CT scan is normal. Patient discharged back to [place]'s home Time: 11:58 MDM - Neuro Symptoms/Deficit MDM Narrative Medical decision making narrative: Normal exam NIH Stroke Scale Level of Consciousness: Alert Level of Consciousness Questions: Answers both questions correctly Level of Consciousness Commands: Performs both tasks correctly Best Gaze: Normal Visual: No visual loss Facial Palsy: Normal Motor Arm (Right): No drift Motor Arm (Left): No drift Motor Leg (Right): No drift Motor Leg (Left): No drift Limb Ataxia: Absent Sensory: Normal Best Language: No aphasia Dysarthia: Normal Extinction and Inattention: No abnormality Score: 0 Discharge Plan Discharge Clinical Impression: Normal exam Patient Disposition: Home, Self-Care Instructions: Normal Exam (ED) Additional Instructions: The history, physical exam and head CT scan does not indicate stroke. You are safe for discharge. Return to the ED for any facial droop, loss of vision, paralysis of extremities, slurred speech, nausea, vomiting, headache, chest pain, shortness of breath, or any other concerning symptoms. Please follow-up with primary care provider Prescriptions: No Action Lantus U-100 Insulin 100 unit/mL Solution 66 unit SUBCUT QPM RF: 0 insulin aspart U-100 [Novolog Flexpen U-100 Insulin] 100 unit/mL (3 mL) insulin pen 12 unit subcut TID RF: 0 metformin 1,000 mg tablet 1,000 mg PO BID RF: 0 atorvastatin 80 mg tablet 80 mg PO BEDTIME RF: 0 carbidopa-levodopa 25-100 mg tablet 1 tab PO TID RF: 0 divalproex 500 mg tablet,delayed release (DR/EC) 500 mg PO TID RF: 0 galantamine 12 mg tablet 24 mg PO ONCE RF: 0 primidone 50 mg tablet 100 mg PO BID RF: 0 venlafaxine 150 mg tablet extended release 24hr 150 mg PO BEDTIME RF: 0 metoprolol tartrate 50 mg tablet 150 mg PO DAILY RF: 0 Discharge Date/Time: 04/25/21 12:24 Print Language: Bulgarian
[2021-04-25 12:00] VITALS: BP 137/71; PULSE 70; RESP 18; O2SAT 100
== END 2021-04-25 12:24 | disposition home or self-care (01) ==
PROVIDERS: Emergency Provider Emergency Medicine; PCP Family Medicine
DX: Z03.89 Encounter for observation for other suspected diseases and conditions ruled out (principal); I10 Essential (primary) hypertension; E11.9 Type 2 diabetes mellitus without complications; G20 Parkinson's disease; Z87.820 Personal history of traumatic brain injury
CPT/HCPCS: 70450; 99284